=== PATIENT | male | born 1965 | race African-American/Black ===

== ENCOUNTER 2024-08-16 16:58 | Inpatient (IN) | payer BC ==
[~2024-08-16] VITALS: Ht 185.4 cm; Wt 95.0 kg
--- NOTE | 2024-08-16 17:15 | ED.PDOC ---
HPI Comments 58 y.o male with PMHx of DC, DM and HTN, presents to the ED for a chief complaint of left sided chest pressure associated with dizziness, SOB and a generalized sharp headache that presented earlier today around 12:30pm at [employer]. Patient reports when he stood up, symptoms presented and since have progressively worsened. Patient also reports BS of 361 today, usually ranges in the 250's s/p eating. Patient denies any nausea, vomiting, diarrhea, abdominal pain, fever, chills., Chief Complaint: Palpitations Time Seen by MD: 17:02 Reviewed Notes: Nurses Notes, Medications, Allergies Allergies: Coded Allergies: NO KNOWN ALLERGIES (Unverified , 08/16/24) Information Source: Patient, Friend, Spouse Mode of Arrival: Wheelchair Severity: Moderate Timing: Hours Duration: Since onset Location: Chest (L) Radiation: No Radiation Onset: At Rest Cardiac Risk Factors: HTN, Diabetes PE Risk Factors: None History of: DC Modifying Factors: Nothing Associated Signs and Symptoms: SOB Past Medical History PAST MEDICAL HISTORY: DM, HTN, DC Surgical History: PTCA Family History Family History: Reviewed,noncontributory to illness Social History Smoker: Non-Smoker Alcohol: Denies ETOH Use Drugs: Denies Drug Use Lives In: Home Constitutional: denies: chills, diaphoresis, fatigue, fever, malaise, sweats, weakness, others EENTM: denies: blurred vision, double vision, ear bleeding, ear discharge, ear drainage, ear pain, ear ringing, eye pain, eye redness, hearing loss, mouth pain, mouth swelling, nasal discharge, nose bleeding, nose congestion, nose kimo n, photophobia, tearing, throat pain, throat swelling, voice changes, others Respiratory: reports: SOB at rest, shortness of breath, SOB with excertion; denies: cough, hemoptysis, orthopnea, stridor, wheezing, others Cardiovascular: reports: chest pain, palpitations; denies: dizzy spells, diaphoresis, Dyspnea on exertion, edema, irregular heart beat, left arm pain, lightheadedness, PND, syncope, others Gastrointestinal: denies: abdomen distended, abdominal pain, blood streaked bowels, constipated, diarrhea, dysphagia, difficulty swallowing, hematemesis, melena, nausea, poor appetite, poor fluid intake, rectal bleeding, rectal pain, vomiting, others Genitourinary: denies: burning, dysuria, flank pain, frequency, hematuria, incontinence, penile discharge, penile sore, pain, testicle pain, testicle swelling, urgency, others Neurological: reports: dizziness, headache; denies: fainting, left sided numbness, left sided weakness, numbness, paresthesia, pre-existing deficit, right sided numbness, right sided weakness, seizure, speech problems, tingling, tremors, weakness, others Musculoskeletal: denies: back pain, gout, joint pain, joint swelling, muscle pain, muscle stiffness, neck pain, others Integumetry: denies: bruises, change in color, change in hair/nails, dryness, laceration, lesions, lumps, rash, wounds, others Allergic/Immunocompromised: denies: Difficulty Healing, Frequent Infections, Hives, Itching, others Hematologic/Lymphatic: denies: anemia, blood clots, easy bleeding, easy bruising, swollen glands, others Endocrine: denies: excessive hunger, excessive sweating, excessive thirst, excessive urination, flushing, intolerance to cold, intolerance to heat, unexplained weight gain, unexplained weight loss, others Psychiatric: denies: anxiety, bipolar disorder, depression, hopeless, panic disorder, schizophrenia, sleepless, suicidal, others All Other Systems: Reviewed and Negative Physical Exam General Appearance: Moderate Distress HEENT: Normal ENT Inspection, Pharynx Normal, TMs Normal Neck: Full Range of Motion, Non-Tender, Normal, Normal Inspection Respiratory: Chest Non-Tender, Lungs Clear, No Accessory Muscle Use, No Respiratory Distress, Normal Breath Sounds Cardiovascular: No Edema, No JVD, No Murmur, No Gallop, Normal Peripheral Pulse s, Regular Rate/Rhythm Breast Exam: Deferred Gastrointestinal: No Organomegaly, Non Tender, No Pulsatile Mass, Normal Bowel Sounds, Soft Genitalia: Deferred Pelvic: Deferred Rectal: Deferred Extremities: No calf tenderness, Normal capillary refill, No pedal edema Musculoskeletal : Apperance: Normal Neurologic: Alert, automatic vulcanizing lead operator II-XII nml as Tested, No Motor Deficits, Normal Affect, Normal Mood, No Sensory Deficits Cerebellar Function: Normal Reflexes: Normal Skin: Dry, Normal Color, Warm Lymphatic: No Adenopathy EKG EKG : Pulse Rate (adult): 146 Cardiac Rhythm: ST, Junctional Was a procedure done? Was a procedure done?: No CP Differential Dx Differential Diagnosis: Angina, Anxiety / Panic Attack, Electrolyte Disorder, Heart Failure, Pulmonary Embolus, Sinus Tachycardia Differential Diagnosis: Angina, Chest Wall Pain, Cholelithiasis, Costochondritis, Esophageal reflux/spasm, Gastritis, Myocardial Infarction, Pericarditis X-Ray, Labs, Meds, VS Vital Signs Date Time Temp Pulse Resp B/P (MAP) Pulse Ox O2 Delivery O2 Flow Rate FiO2 08/16/24 18:34 96 15 99 Room Air* 0 21 08/16/24 18:31 93 123/81 08/16/24 18:00 93 15 123/81 (95) 100 08/16/24 18:00 90 08/16/24 17:57 90 08/16/24 17:46 98.4 91 15 123/80 (94) 100 98.4 08/16/24 17:15 146 08/16/24 17:13 98.4 141 16 118/87 (97) 98 08/16/24 17:02 146 Lab Test 08/16/24 19:16 08/16/24 18:07 Range/Units Prothrombin Time Pending Prothrombin Time INR Pending Activated Partial Thromboplast Time Pending D-Dimer, Quantitative 0.42 0.0-0.49 mg/L FEU Troponin I High Sensitivity 202 *H 104 *H </=54 ng/L White Blood Count 13.2 H 4.4-10.8 10^3/uL Red Blood Count 4.55 4.5-5.90 10^6/uL Hemoglobin 14.6 13.5-17.5 g/dL Hematocrit 42.8 41.0-53.0 % Mean Corpuscular Volume 94.2 80.0-100.0 fL Mean Corpuscular Hemoglobin 32.1 H 28.0-32.0 pg Mean Corpuscular Hemoglobin Concent 34.0 32.0-36.0 g/dL Red Cell Distribution Width 14.6 H 11.8-14.3 % Platelet Count 156 140-450 10^3/uL Mean Platelet Volume 8.7 6.9-10.8 fL Neutrophils (%) (Auto) 68.8 37.0-80.0 % Lymphocytes (%) (Auto) 21.9 10.0-50.0 % Monocytes (%) (Auto) 7.6 0.0-12.0 % Eosinophils (%) (Auto) 1.1 0.0-7.0 % Basophils (%) (Auto) 0.6 0.0-2.0 % Neutrophils # (Auto) 9.1 H 1.6-8.6 10 ^3/uL Lymphocytes # (Auto) 2.9 0.4-5.4 10 ^3/uL Monocytes # (Auto) 1.0 0-1.3 10 ^3/uL Eosinophils # (Auto) 0.2 0-0.8 10 ^3/uL Basophils # (Auto) 0.1 0-0.2 10 ^3/uL Nucleated Red Blood Cells 0.0 % Sodium Level 139 136-145 mmol/L Potassium Level 4.1 3.5-5.1 mmol/L Chloride Level 107 98-107 mmol/L Carbon Dioxide Level 21 20-31 mmol/L Anion Gap 11 5-15 Blood Urea Nitrogen 12 9-23 mg/dL Creatinine 1.59 H 0.700-1.30 mg/dL Glomerular Filtration Rate Calc 50 >90 mL/min BUN/Creatinine Ratio 7.5 L 10.0-20.0 Serum Glucose 173 H 74-106 mg/dL Calcium Level 9.6 8.7-10.4 mg/dL Magnesium Level 1.7 1.6-2.6 mg/dL Total Bilirubin 0.4 0.2-1.0 mg/dL Aspartate Amino Transferase (AST) 23 13-40 U/L Alanine Aminotransferase (ALT) 20 7-40 U/L Alkaline Phosphatase 55 46-116 U/L Total Protein 6.3 5.7-8.2 g/dL Albumin 4.0 3.2-4.8 g/dL Current Medications Medications (Trade) Dose Ordered Sig/Samir Route Start Time Stop Time Status Last Admin Aspirin 162 mg ONCE ONCE PO 08/16/24 17:15 08/16/24 17:22 DC 08/16/24 18:32 CHEST RADIOGRAPH IMPRESSION: 1. No evidence of acute disease. The patient's CBC shows an elevated white blood cell count of 13.2 The rest of the CBC is within normal limits The patient was given aspirin 162 mg by mouth The patient's initial troponin was 104 The troponin continues to rise now at 202 for the 2nd one The patient was not currently having any chest pain We have discussed the findings with the patient We did call the microfilm operator (Dr. Mackey) The patient was receiving a heparin bolus and then being placed on a heparin drip The patient was being admitted at this time The patient will be given medication for chest pain if it persists. The repeat EKG shows now the rate at around 90 at normal sinus rhythm Images Reviewed?: Images reviewed and evaluated by me Time of 1ST Reevaluation: 17:12 Reevaluation 1ST: Unchanged Patient Education/Counseling: Diagnosis, Treatment, Prognosis Family Education/Counseling: No Family Present Departure 1 Departure Time of Disposition: 20:00 Impression: Primary Impression: Elevated troponin Additional Impression: Non-STEMI (non-ST elevated myocardial infarction) Disposition: ADMITTED INPATIENT Admit to: Tele Condition: Fair Critical Care Note Critical Care Time?: Yes (45 min-critical care time only) Stability Stability form required: Yes Unstable for transfer: Telemetry monitoring (Telemetry monitoring required), ED Physician Assesment (Clinical assesment) Heart Score Heart Score: Heart Score Response (Comments) Value History Moderate Suspicious 1 EKG Repolarization Disturb 1 Age 45-64 1 Risk Factors >3 or Hx ASHD 2 Troponin 1-2 x's Normal limit 1 Total 6 I personally scribed for NEGIN DELAROSA MD ([email or web address]) on 08/16/24 at 17:15. Electronically submitted by Marisol Eduardo ([employer]). I personally scribed for NEGIN DELAROSA MD ([email or web address] [email or web address] Skin) on 08/16/24 at 19:20. Electronically submitted by Marisol Eduardo ([employer]). NEGIN DELAROSA MD Aug 16, 2024 17:15
--- NOTE | 2024-08-16 17:37 | DVH ---
CHEST RADIOGRAPH Indication: cp Technique: Frontal and lateral view of the chest was obtained Comparison: None FINDINGS: Lines and Tubes: None Lungs: Clear Pleura: No effusion. No pneumothorax. Cardiomediastinal contours: Unremarkable Bones: Unremarkable IMPRESSION: 1. No evidence of acute disease.
--- NOTE | 2024-08-16 17:58 | ECG ---
[facility] Test Date: 2024-08-16 Test Time: 17:57:56 Pat Name: ROMEL MILLER Department: er Room: Gender: M Application Integration Specialist: geeta : 1965 Requested By: NEGIN DELAROSA Order Number: [id number] Reading MD: Measurements Intervals [place] Rate: 90 P: 21 FL: 187 QRS: 21 QRSD: 73 T: -33 QT: 312 QTc: 382 Interpretive Statements Sinus rhythm Nonspecific T abnormalities, diffuse leads Please click the below link to view image of tracing.
[2024-08-16 18:16] LABS: Basophils # (auto) 0.1 10 ^3/uL (0-0.2); Basophils % (auto) 0.6 % (0.0-2.0); Eosinophils # (auto) 0.2 10 ^3/uL (0-0.8); Eosinophils % (auto) 1.1 % (0.0-7.0); Hematocrit 42.8 % (41.0-53.0); Hemoglobin 14.6 g/dL (13.5-17.5); Lymphocytes # (auto) 2.9 10 ^3/uL (0.4-5.4); Lymphocytes % (auto) 21.9 % (10.0-50.0); Mean Corpuscular Hemoglobin 32.1 pg (28.0-32.0); Mean Corpuscular Volume 94.2 fL (80.0-100.0); Monocytes % (auto) 7.6 % (0.0-12.0); Neutrophils # (auto) 9.1 10 ^3/uL (1.6-8.6); Neutrophils % (auto) 68.8 % (37.0-80.0); Platelet Count (auto) 156 10^3/uL (140-450); Red Blood Cells 4.55 10^6/uL (4.5-5.90); Red Cell Distribution Width 14.6 % (11.8-14.3); White Blood Cell 13.2 10^3/uL (4.4-10.8)
[2024-08-16] MEDS: METOPROLOL TARTRATE 1MG/1ML-5ML VIAL IV ONE (18:31)
[2024-08-16] MEDS: ASPirin 81 mg TAB PO ONE (18:32)
[2024-08-16 18:34] VITALS: PULSE 96; RESP 15; O2SAT 99
[2024-08-16 18:48] LABS: Alanine Aminotransferase 20 U/L (7-40); Alkaline Phosphatase 55 U/L (46-116); Anion Gap 11 (5-15); Aspartate Aminotransferase 23 U/L (13-40); BUN/Creatinine Ratio 7.5 (10.0-20.0); Bilirubin, Total 0.4 mg/dL (0.2-1.0); Blood Urea Nitrogen 12 mg/dL (9-23); Calcium 9.6 mg/dL (8.7-10.4); Carbon Dioxide 21 mmol/L (20-31); Chloride 107 mmol/L (98-107); Glucose 173 mg/dL (74-106); Potassium 4.1 mmol/L (3.5-5.1); Sodium 139 mmol/L (136-145); Total Protein 6.3 g/dL (5.7-8.2)
[2024-08-16 19:30] VITALS: PULSE 92; RESP 15; O2SAT 99
[2024-08-16] MEDS ORDERED: HEPARIN SODIUM (PORCINE) 5000 UNITS/ML 1ML VIAL IV ONE (19:30)
[2024-08-16 20:05] LABS: Partial Thromboplastin Time 20.1 SEC (24.5-34.5); Prothrombin Time 10.6 sec (9.3-11.8)
[2024-08-16] MEDS ORDERED: DEXTROSE (50%) 50ML SYRG IV PRN (20:30)
[2024-08-16] MEDS ORDERED: ONDANSETRON HCL 4 MG/2 ML VIAL IV PRN (20:30)
[2024-08-16] MEDS ORDERED: NITROGLYCERIN 0.4 MG SL TAB SL PRN (20:30)
[2024-08-16] MEDS ORDERED: MORPHINE SULFATE INJ 2 MG/ml SYRG IV PRN (20:30)
[2024-08-16] MEDS: ACETAMINOPHEN 325 MG TAB PO ONE (21:10)
[2024-08-16] MEDS ORDERED: HEPARIN DRIP/D5W 100UNITS/ML 250 ML IV SCH (21:30)
[2024-08-16] MEDS: SODIUM CHLORIDE 0.9% 1,000 ML IV ONE (21:38)
[2024-08-16] MEDS: HEPARIN SODIUM (PORCINE) 5000 UNITS/ML 1ML VIAL IV ONE (22:14)
--- NOTE | 2024-08-16 22:15 | DVHHP2 ---
History of Present Illness Reason for Visit: Shortness of breath History of Present Illness 58-year-old male presents with complaints of shortness for breath. 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 He states the symptoms persisted with dizziness. He reports mild left-sided chest discomfort. One of the members at his [employer] checked his vital signs and his heart rate was sustaining in the 160s and blood pressure in the one teens. Currently he denies any other acute complaints at the moment. Past Medical History Hypertension, mi, diabetes mellitus Past Surgical History PTCA Family History Noncontributory Smoke: No ALCOHOL: none Drugs: None Lives: with Family Review of Systems Review of Systems Review of systems are currently negative otherwise addressed in HPI. Allergies: Coded Allergies: NO KNOWN ALLERGIES (Unverified , 08/16/24) Medications Current Medications Medications Dose Ordered Sig/Samir Route Start Time Stop Time Status Last Admin Dose Admin Heparin Sodium/ Dextrose 250 ml @ 10 mls/hr Q24H IV 08/16/24 21:30 Atorvastatin Calcium 10 mg HS PO 08/16/24 22:00 Diagnostic Test (Pha) 1 strip Q6HR 08/17/24 00:00 Insulin Human Regular Q6HR SC 08/17/24 00:00 Dextrose 50 ml UD PRN IV 08/16/24 20:30 Ondansetron HCl 4 mg Q4HP PRN IV 08/16/24 20:30 Nitroglycerin 0.4 mg Q5MINP PRN SL 08/16/24 20:30 Morphine Sulfate 2 mg Q30M PRN IV 08/16/24 20:30 Exam Vital Signs Vital Signs Date Time Temp Pulse Resp B/P (MAP) Pulse Ox O2 Delivery O2 Flow Rate FiO2 08/16/24 21:10 97.5 08/16/24 20:06 82 08/16/24 19:30 15 99 Room Air* 0 21 08/16/24 18:31 123/81 Exam Gen: 58-year-old male in no apparent distress Skin: Warm, dry, normal color and texture, no rash. HEENT: Normocephalic atraumatic, mucous membranes moist and pink. Neck: Cervical and supraclavicular nodes normal without enlargement, trachea is midline, thyroid gland is normal without masses. Pulmonary: Clear to auscultation and percussion bilaterally. Cardiac: Regular rate and rhythm. No murmur Abdomen: Soft, nontender, nondistended, bowel sounds present all 4 quadrants, no guarding, no rigidity, no organomegaly. Extremities: No cyanosis, clubbing, no edema Neuro: Cranial nerves II through XII grossly intact, normal affect and speech, no focal motor deficits. Labs/Xrays ORDERING PHYSICIAN: NEGIN DELAROSA MD PROCEDURE(s): CXR2 - CHEST TWO VIEWS ROUTINE REASON: cp ORDER NUMBER(s): [id number], ACCESSION NUMBER(s): [id number] CHEST RADIOGRAPH Indication: cp Technique: Frontal and lateral view of the chest was obtained Comparison: None FINDINGS: Lines and Tubes: None Lungs: Clear Pleura: No effusion. No pneumothorax. Cardiomediastinal contours: Unremarkable Bones: Unremarkable IMPRESSION: 1. No evidence of acute disease. Labs Test 08/16/24 19:16 08/16/24 18:07 Range/Units Prothrombin Time 10.6 9.3-11.8 sec Prothrombin Time INR 1.00 0.9-1.15 Activated Partial Thromboplast Time 20.1 L 24.5-34.5 SEC D-Dimer, Quantitative 0.42 0.0-0.49 mg/L FEU Troponin I High Sensitivity 202 *H </=54 ng/L White Blood Count 13.2 H 4.4-10.8 10^3/uL Red Blood Count 4.55 4.5-5.90 10^6/uL Hemoglobin 14.6 13.5-17.5 g/dL Hematocrit 42.8 41.0-53.0 % Mean Corpuscular Volume 94.2 80.0-100.0 fL Mean Corpuscular Hemoglobin 32.1 H 28.0-32.0 pg Mean Corpuscular Hemoglobin Concent 34.0 32.0-36.0 g/dL Red Cell Distribution Width 14.6 H 11.8-14.3 % Platelet Count 156 140-450 10^3/uL Mean Platelet Volume 8.7 6.9-10.8 fL Neutrophils (%) (Auto) 68.8 37.0-80.0 % Lymphocytes (%) (Auto) 21.9 10.0-50.0 % Monocytes (%) (Auto) 7.6 0.0-12.0 % Eosinophils (%) (Auto) 1.1 0.0-7.0 % Basophils (%) (Auto) 0.6 0.0-2.0 % Neutrophils # (Auto) 9.1 H 1.6-8.6 10 ^3/uL Lymphocytes # (Auto) 2.9 0.4-5.4 10 ^3/uL Monocytes # (Auto) 1.0 0-1.3 10 ^3/uL Eosinophils # (Auto) 0.2 0-0.8 10 ^3/uL Basophils # (Auto) 0.1 0-0.2 10 ^3/uL Nucleated Red Blood Cells 0.0 % Sodium Level 139 136-145 mmol/L Potassium Level 4.1 3.5-5.1 mmol/L Chloride Level 107 98-107 mmol/L Carbon Dioxide Level 21 20-31 mmol/L Anion Gap 11 5-15 Blood Urea Nitrogen 12 9-23 mg/dL Creatinine 1.59 H 0.700-1.30 mg/dL Glomerular Filtration Rate Calc 50 >90 mL/min BUN/Creatinine Ratio 7.5 L 10.0-20.0 Serum Glucose 173 H 74-106 mg/dL Calcium Level 9.6 8.7-10.4 mg/dL Magnesium Level 1.7 1.6-2.6 mg/dL Total Bilirubin 0.4 0.2-1.0 mg/dL Aspartate Amino Transferase (AST) 23 13-40 U/L Alanine Aminotransferase (ALT) 20 7-40 U/L Alkaline Phosphatase 55 46-116 U/L Total Protein 6.3 5.7-8.2 g/dL Albumin 4.0 3.2-4.8 g/dL Assessment/Plan Assessment/Plan Assessment NSTEMI Chronic kidney disease Hypertension Diabetes mellitus Plan Admit the patient to telemetry to the hospitalist Continue heparin drip started by ER provider NPO after midnight Cardiology consultation Continue treatment per orders. Plan discussed with: Patient My Orders Orders - TOMASZ GANDHI Procedure Category Date Status Time Atorvastatin (Lipitor) PHA 08/16/24 In Process 22:00 Sodium Chloride 0.9% PHA 08/16/24 In Process 20:30 Basic Metabolic Panel LAB 08/17/24 Verified 04:00 Glucose Blood PHA 08/17/24 In Process (Accu-Chek Comfort 00:00 Insulin R (Human) PHA 08/17/24 In Process (Insulin R) 00:00 Dextrose 50% Syringe PHA 08/16/24 In Process 20:30 Admit ADMIT 08/16/24 Transmitted 20:19 Ondansetron Hcl PHA 08/16/24 In Process (Zofran) 20:30 Npo (Nothing By DIET 08/17/24 Transmitted Mouth) Diet Breakfast Condition: Fair [facility] 08/16/24 In Process 20:19 Bedrest With Bathroom [facility] 08/16/24 In Process Privileg 20:19 Nitroglycerin [facility] 08/16/24 In Process Sublingual (Ntrostat 20:30 Morphine Sulfate [facility] 08/16/24 In Process Injection 20:30 Notify Of Changes [facility] 08/16/24 In Process From Base 20:19 Clip Riveter For [facility] 08/16/24 In Process 24 Hours 20:19 Emergency Dysrhythmia [facility] 08/16/24 In Process Protocol 20:19 Rhythm Strips Once [facility] 08/16/24 In Process Every Shift 20:19 Oxygen By Nasal RT 08/16/24 Transmitted Cannula 20:19 Troponin-I Hs LAB 08/16/24 Logged 22:03 Lipid Panel LAB 08/16/24 Logged 22:03 Date of Service: Aug 16, 2024 Billing Provider: TOMASZ GANDHI Common Visit Codes: [id number] INP/OBS CARE (HIGH) TOMASZ GANDHI Aug 16, 2024 22:15
[2024-08-16] MEDS: HEPARIN DRIP/D5W 100UNITS/ML 250 ML IV SCH (22:30)
[2024-08-16 22:31] LABS: LDL Cholesterol 73 mg/dL (< 100); Triglycerides 93 mg/dL (< 150)
[2024-08-16 22:33] LABS: Cholesterol 145 mg/dL (< 200); HDL Cholesterol 57 mg/dL (40-59)
[2024-08-16] MEDS: ATORVASTATIN 20 MG TAB PO SCH (23:51)
[2024-08-17] MEDS: ACCU-CHEK COMFORT CURVE STRIP VI SCH (00:33)
[2024-08-17] MEDS: InsuLIN REG 1unit/0.01ml Soln (100units/ml) SC SCH (00:38)
[2024-08-17 05:55] LABS: INR 1.03 (0.9-1.15); Partial Thromboplastin Time 46.2 SEC (24.5-34.5); Prothrombin Time 10.9 sec (9.3-11.8)
[2024-08-17 06:02] LABS: Potassium 3.7 mmol/L (3.5-5.1); Sodium 142 mmol/L (136-145)
[2024-08-17 06:03] LABS: Anion Gap 9 (5-15); Carbon Dioxide 23 mmol/L (20-31)
[2024-08-17 06:08] LABS: BUN/Creatinine Ratio 10.6 (10.0-20.0); Blood Urea Nitrogen 15 mg/dL (9-23); Glucose 98 mg/dL (74-106)
[2024-08-17 06:22] LABS: Calcium 8.5 mg/dL (8.7-10.4); Chloride 110 mmol/L (98-107)
[2024-08-17] MEDS: HEPARIN DRIP/D5W 100UNITS/ML 250 ML IV SCH (06:28)
--- NOTE | 2024-08-17 07:09 | ECG ---
[facility] Test Date: 2024-08-16 Test Time: 20:06:34 Pat Name: ROMEL MILLER Department: ER Room: [address] [place] [address] Gender: M Club Waiter/Waitress: : 1965 Requested By: NEGIN DELAROSA Order Number: [id number] Reading MD: Measurements Intervals [place] Rate: 82 P: 10 ME: 178 QRS: 23 QRSD: 78 T: -40 QT: 347 QTc: 406 Interpretive Statements Sinus rhythm Nonspecific T abnormalities, diffuse leads Please click the below link to view image of tracing.
[2024-08-17 08:06] VITALS: PULSE 97; RESP 18; O2SAT 97
--- NOTE | 2024-08-17 10:14 | DVHINCON2 ---
PINA ROBLES [facility] 08/17/24 1014: Date Seen: Aug 17, 2024 Referring Physician MD Jamila Reason for Consultation Chest pain History of Present Illness This is a 58-year-old male patient who presents to the emergency room with chief complaint of shortness of breath, dizziness, and chest pain. The patient reports that at approximately 1:00 p.m. 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 He also describes chest pain which he states was unprovoked, intermittent, pressure-like in nature, and left-sided and nonradiating. He came to the emergency room for further evaluation. Initial twelve lead electrocardiogram reveals atrial tachycardia with diffuse T-wave depression. Initial troponin level of 104ng/L with peak level at 299ng/L. Significant past medical history includes previous myocardial infarction in 2018, coronary artery disease status post PTCA X 1 KD in 2019, hypertension, dyslipidemia, type 2 diabetes mellitus, and GERD. 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 Past Medical History Past medical history reviewed. No other significant than mentioned above. Past Surgical History Denies all previous surgeries Family History Family history reviewed. Social History Denies the use of tobacco, alcohol or illicit drugs. Allergies: Coded Allergies: NO KNOWN ALLERGIES (Unverified , 08/16/24) Home Meds Reported Medications Insulin Glargine (Toujeo Solostar) 300 Unit/Ml Inj 08/17/24 Hydralazine Hcl (Hydralazine Hcl) 50 Mg Tab, 1 08/17/24 Amlodipine Besylate (Amlodipine Besylate) 5 Mg Tab, 1 DAILY 08/17/24 Losartan Potassium (Losartan Potassium) 100 Mg Tab, 1 DAILY 08/17/24 Metoprolol Succinate (Metoprolol Succinate Er) 25 Mg Tab 08/17/24 Home Meds Home medications reviewed. Current Medications Current Medications Medications (Trade) Dose Ordered Sig/Samir Route PRN Reason Start Time Stop Time Status Last Admin Heparin Sodium/ Dextrose 250 ml @ 10 mls/hr Q24H IV 08/16/24 21:30 08/16/24 22:20 DC Atorvastatin Calcium (Lipitor) 10 mg HS PO 08/16/24 22:00 Diagnostic Test (Pha) (Accu-Chek Comfort Curve T) 1 strip Q6HR 08/17/24 00:00 08/17/24 06:57 Insulin Human Regular (InsuLIN R) Q6HR SC 08/17/24 00:00 08/17/24 00:38 Dextrose 50 ml UD PRN IV Blood Sugar LESS THAN 60 08/16/24 20:30 Ondansetron HCl (Zofran) 4 mg Q4HP PRN IV NAUSEA / VOMITING 08/16/24 20:30 Nitroglycerin (Ntrostat Sublingual) 0.4 mg Q5MINP PRN SL FOR CHEST PAIN 08/16/24 20:30 Morphine Sulfate 2 mg Q30M PRN IV FOR CHEST PAIN 08/16/24 20:30 Heparin Sodium/ Dextrose 250 ml @ 10 mls/hr Q24H IV 08/16/24 22:30 08/17/24 06:23 DC 08/16/24 22:30 Heparin Sodium/ Dextrose 250 ml @ 12 mls/hr [id number] IV 08/17/24 06:30 08/17/24 06:28 Review of Systems Constitutional: No symptom reported Ears, Nose, & Throat: No symptom reported Eyes: No symptom reported Neurological: No symptoms reported Pulmonary/Respiratory: Shortness of breath Cardiovascular: Chest pain Gastrointestinal: No symptom reported Genitourinary: No symptom reported Musculoskeletal: No symptom reported Skin: No symptom reported Psychiatric: No symptom reported Endocrine: No symptom reported Hematologic/Lymphatic: No symptom reported Vital Signs Vital Signs Date Time Temp Pulse Resp B/P (MAP) Pulse Ox O2 Delivery O2 Flow Rate FiO2 08/17/24 08:06 97 18 97 Room Air* 0 21 08/17/24 08:05 98.0 135/95 (108) 98.0 Physical Exam General Appearance: Cooperative. Well-developed. Well-nourished. No acute distress. Pulmonary/Respiratory: Clear, bilateral breaths sounds. Cardiovascular/Chest: Regular rate and rhythm. Peripheral Pulses: 2+ Radial (R). 2+ Radial (L). 2+ Pedal (R). 2+ Pedal (L) Abdominal Exam: Normal bowel sounds. Ankle Exam: Negative ankle edema Lower extremities: Negative lower extremity edema Neuro/Mental Status: A/OX4, coherent. Thoughts/Psych: Normal thought pattern. Appropriate mood and affect. Good ju dgment and insight. Appearance: No acute distress. Skin Exam: Normal inspection. Normal color. Warm and dry. Labs/Diagnostic Data Labs Test 08/17/24 10:04 08/17/24 09:50 08/17/24 05:00 08/16/24 22:06 Range/Units POC Glucose 114 H 70-106 mg/dl Sodium Level 142 136-145 mmol/L Potassium Level 3.7 3.5-5.1 mmol/L Chloride Level 110 H 98-107 mmol/L Carbon Dioxide Level 23 20-31 mmol/L Anion Gap 9 5-15 Blood Urea Nitrogen 15 9-23 mg/dL Creatinine 1.41 H 0.700-1.30 mg/dL Glomerular Filtration Rate Calc 58 >90 mL/min BUN/Creatinine Ratio 10.6 10.0-20.0 Serum Glucose 98 74-106 mg/dL Calcium Level 8.5 L 8.7-10.4 mg/dL Triglycerides Level 93 < 150 mg/dL Cholesterol Level 145 < 200 mg/dL LDL Cholesterol 73 < 100 mg/dL HDL Cholesterol 57 40-59 mg/dL Test 08/16/24 19:16 08/16/24 18:07 Range/Units D-Dimer, Quantitative 0.42 0.0-0.49 mg/L FEU Eosinophils (%) (Auto) 1.1 0.0-7.0 % Eosinophils # (Auto) 0.2 0-0.8 10 ^3/uL Basophils # (Auto) 0.1 0-0.2 10 ^3/uL Nucleated Red Blood Cells 0.0 % Magnesium Level 1.7 1.6-2.6 mg/dL Total Bilirubin 0.4 0.2-1.0 mg/dL Aspartate Amino Transferase (AST) 23 13-40 U/L Alanine Aminotransferase (ALT) 20 7-40 U/L Alkaline Phosphatase 55 46-116 U/L Total Protein 6.3 5.7-8.2 g/dL Albumin 4.0 3.2-4.8 g/dL Assessment Chest pain, rule out coronary ischemia Coronary artery disease status post PTCA x1 KD Rule out structural heart disease History myocardial infarction in 2019 Hypertension Dyslipidemia Type 2 diabetes mellitus Acute kidney injury Plan/Recommendation We will continue with following plan/recommendations (Dr. Nguyen): * Echocardiogram to evaluate cardiac function * Chest pain protocol * KRIS score: 3 points * HEART score: 5 points * Single antiplatelet therapy and lipid-lowering agent * Close Cardiac surveillance * Nuclear scan Case discussed with . Given the patient's clinical presentation and elevated troponin level, we will proceed with a nuclear stress test. Plan discussed with the patient who is agreeable. We will schedule the patient at first availability. Thank you for allowing us to care for this patient. Please call with any questions or concerns. Critical care time spent: 44 minutes This medical document was created using an electronic medical record system with voice recognition software and computerized dictation system. Although this document has been carefully reviewed, there might still be some phonetic and typographical errors. Occasional wrong-word or ``sound-alike substitutions may have occurred due to the inherent limitations of voice recognition software. These areas are purely typographical due to imperfections of the software programs and do not reflect any compromise in the patient's medical care. Please read the chart carefully and recognize, using context, where these substitutions have occurred. Plan discussed with: Patient NYHA Physical activity limitations: NA Date of Service: Aug 17, 2024 Billing Provider: PINA ROBLES Cardiology Common Codes: 50521-LCGJWHR INP/OBS CARE (High) Cardiology Consultation Codes: 32900-[id number] CONSULT <45MIN ALTAGRACIA NGUYEN MD 08/17/24 1855: Allergies: Coded Allergies: NO KNOWN ALLERGIES (Unverified , 08/16/24) Home Meds Reported Medications Insulin Glargine (Toujeo Solostar) 300 Unit/Ml Inj 08/17/24 Hydralazine Hcl (Hydralazine Hcl) 50 Mg Tab, 1 08/17/24 Amlodipine Besylate (Amlodipine Besylate) 5 Mg Tab, 1 DAILY 08/17/24 Losartan Potassium (Losartan Potassium) 100 Mg Tab, 1 DAILY 08/17/24 Metoprolol Succinate (Metoprolol Succinate Er) 25 Mg Tab 08/17/24 Plan/Recommendation ecg showed atrial tach possible long RP tach, SVT start BB r/o ischemia, spect, no major ischemia noted Plan discussed with: Patient PINA ROBLES Aug 17, 2024 10:14 ALTAGRACIA NGUYEN MD Aug 17, 2024 18:55
[2024-08-17 10:17] LABS: Basophils # (auto) 0.1 10 ^3/uL (0-0.2); Basophils % (auto) 0.7 % (0.0-2.0); Eosinophils # (auto) 0.2 10 ^3/uL (0-0.8); Eosinophils % (auto) 2.1 % (0.0-7.0); Hematocrit 40.8 % (41.0-53.0); Lymphocytes # (auto) 3.5 10 ^3/uL (0.4-5.4); Lymphocytes % (auto) 34.9 % (10.0-50.0); Mean Corpuscular Hemoglobin 32.5 pg (28.0-32.0); Mean Corpuscular Hgb Conc. 34.2 g/dL (32.0-36.0); Mean Corpuscular Volume 94.8 fL (80.0-100.0); Monocytes # (auto) 0.7 10 ^3/uL (0-1.3); Monocytes % (auto) 7.4 % (0.0-12.0); Neutrophils # (auto) 5.6 10 ^3/uL (1.6-8.6); Neutrophils % (auto) 54.9 % (37.0-80.0); Nucleated Red Blood Cells % 0.1 %; Platelet Count (auto) 270 10^3/uL (140-450); Red Blood Cells 4.31 10^6/uL (4.5-5.90); Red Cell Distribution Width 15.1 % (11.8-14.3); White Blood Cell 10.2 10^3/uL (4.4-10.8)
[2024-08-17 11:25] LABS: INR 1.08 (0.9-1.15); Partial Thromboplastin Time 66.4 SEC (24.5-34.5); Prothrombin Time 11.4 sec (9.3-11.8)
--- NOTE | 2024-08-17 12:38 | DVHSR ---
APPROVED REPORT EXAM: Two-dimensional and M-mode echocardiogram with Doppler and color Doppler. Blood Pressure: 135/95 mmHg INDICATION Evaluate cardiac function BRIEF HISTORY CAD RISK FACTORS Height: 6'1", Weight: 209 DIMENSIONS LVDd4.1 (3.8-5.7cm)LA (2D)3.5 (1.9-4.0cm)Aortic Root3.3 (2.0-3.7cm) LVDs3.5 (2.5-4.0cm)LA (MM) (1.9-4.0cm)Aortic Cusp Exc1.7 (1.5-2.0cm) EF (%) 40.0 (55-70%)Rt. Atrium3.6 (1.9-4.0cm)Asc. Aorta cm IVSd1.1 (0.7-1.1cm)RV (D)4.3 (1.8-2.4cm) PWd1.0 (0.7-1.1cm) Mitral Valve MitralMitral Stenosis E wave0.69m/sMV Mean GR.mmHg A wave0.92m/sMV Peak GR.mmHg E/A ratio0.82D MVAcm2 DECEL [id number] 1/2 [place] Aortic Valve Aortic ValveAortic Stenosis V10.93m/[place] Mean GR.4mmHg V21.32m/[place] Peak GR.7mmHg LVOT Diameter1.9 (1.8-2.4cm)Doppler AVA2.00cm2 Pulmonic Valve V20.93m/s Conclusion lvef 55% by visual estimate borderline LVH grade 1 diastolic dysfunction normal rv function bordelrine left atrium enlarged no severe valve abnormaliteis noted
[2024-08-17 12:57] LABS: Amphetamine Screen, Urine Neg (NEGATIVE); Barbiturate Scree,Urine Neg (NEGATIVE); Opiate Scree,Urine Neg (NEGATIVE); Phencyclidine Screen, Urine Neg (NEGATIVE)
[2024-08-17 12:58] LABS: Benzodiazephine Screen, Urine Neg (NEGATIVE); Cannabinoid Screen, Urine Neg (NEGATIVE); Cocaine Screen, Urine Neg (NEGATIVE)
[2024-08-17] MEDS: METOPROLOL SUCCINATE XL 50 MG TAB PO ONE ×2 (14:23→17:17)
[2024-08-17] MEDS: REGADENOSON 0.4 MG/5 ML SYRG IV ONE ×2 (14:26→14:27)
--- NOTE | 2024-08-17 14:49 | DVHSR ---
APPROVED REPORT Exam: Nuclear Stress Test BMI: 0 Stress Test Details HR Max Heart Rate (APMHR): 163.396711 bpm Target HR (85% APMHR): 138.202862 bpm BP ECG Stress ECG Conclusion lvef 50% minor anterior wall defect noted no severe stress induced ischemia noted stress ecg shows sinus tachycardia NM EXAM: Myocardial Perfusion REST/STRESS Imaging Protocol: Rest Tc-99m/Stress Tc-99m 1 day Resting Data Rest SPECT myocardial perfusion imaging was performed in supine position 60 minutes following the int ravenous injection of 11.3 mCi of Tc-99m Sestamibi. Time of rest injection: 1154 Time of rest imagin Administration Route: IV Administration Site: Left Hand Pharmacologic Stress Pharmacologic stress test was performed by injecting Regadenoson 0.4 mg IV push followed by the intra venous injection of 30.3 mCi of Tc-99m Sestamibi. Time of stress injection: 1330 Time of stress imagin Administration Route: IV Administration Site: Left Hand Gated Stress SPECT was performed 60 minutes after stress injection. The images were gated to evaluate regional wall motion and calculate left ventricular ejection fracti on. Stress only was performed in the Supine position. Nuclear Conclusion Nuclear Findings: negative for ischemia lvef 50% minor anterior wall defect noted no severe stress induced ischemia noted stress ecg shows sinus tachycardia
--- NOTE | 2024-08-17 15:30 | ECG ---
[facility] Test Date: 2024-08-16 Test Time: 17:02:40 Pat Name: ROMEL MILLER Department: ER Room: [address] [place] [address] Gender: M [employer] Supervisor: PHYLLIS : 1965 Requested By: NEGIN DELAROSA Order Number: [id number] Reading MD: Measurements Intervals [place] Rate: 146 P: 0 [place]: 0 QRS: 43 QRSD: 93 T: -42 QT: 284 QTc: 443 Interpretive Statements Junctional tachycardia Abnormal T, consider ischemia, diffuse leads Borderline ST elevation, anterolateral leads Please click the below link to view image of tracing.
--- NOTE | 2024-08-17 16:02 | DVHPN2 ---
Subjective Patient denies any symptoms at this time. Reviewed: Care Plan, H&P, Labs, Medications Changes from previous H/P or p: No Changes General: Per HPI Objective Vitals Vital Signs Date Time Temp Pulse Resp B/P (MAP) Pulse Ox O2 Delivery O2 Flow Rate FiO2 08/17/24 14:30 85 14 154/94 (114) 99 08/17/24 08:06 Room Air* 0 21 08/17/24 08:05 98.0 98.0 Intake/Output Intake and Output 08/17/24 07:00 Intake Total 791 ml Balance 791 ml Intake IV Total 791 ml General Appearance: Alert, Oriented X3, Cooperative, No acute distress HEENT: Atraumatic, PERRLA Lungs: Clear to auscultation, Normal air movement Cardiovascular: Normal S1, Normal S2 Abdomen: Normal bowel sounds, Soft Musculoskeletal: Normal sensory function, Normal motor function Neuro: Normal gait, Normal speech Psych/Mental Status: Mental status NL, Mood NL Medications Current Medications Medications Dose Ordered Sig/Samir Route Start Time Stop Time Status Last Admin Dose Admin Atorvastatin Calcium 10 mg HS PO 08/16/24 22:00 Diagnostic Test (Pha) 1 strip Q6HR 08/17/24 00:00 08/17/24 12:08 1 STRIP Insulin Human Regular Q6HR SC 08/17/24 00:00 08/17/24 00:38 4 UNITS Dextrose 50 ml UD PRN IV 08/16/24 20:30 Ondansetron HCl 4 mg Q4HP PRN IV 08/16/24 20:30 Nitroglycerin 0.4 mg Q5MINP PRN SL 08/16/24 20:30 Morphine Sulfate 2 mg Q30M PRN IV 08/16/24 20:30 Heparin Sodium/ Dextrose 250 ml @ 12 mls/hr [id number] IV 08/17/24 06:30 08/17/24 06:28 12 MLS/HR Aspirin 81 mg DAILY PO 08/18/24 10:00 Metoprolol Succinate 25 mg DAILY PO 08/18/24 10:00 Laboratory Results Laboratory Tests 08/17/24 05:00 08/17/24 10:04 Chemistry Test 08/16/24 18:07 08/17/24 05:00 Albumin 4.0 g/dL (3.2-4.8) Calcium Level 9.6 mg/dL (8.7-10.4) 8.5 mg/dL (8.7-10.4) L Magnesium Level 1.7 mg/dL (1.6-2.6) Total Protein 6.3 g/dL (5.7-8.2) Coagulation Test 08/16/24 19:16 08/17/24 05:00 08/17/24 10:04 Prothrombin Time 10.6 sec (9.3-11.8) 10.9 sec (9.3-11.8) 11.4 sec (9.3-11.8) Prothrombin Time INR 1.00 (0.9-1.15) 1.03 (0.9-1.15) 1.08 (0.9-1.15) Activated Partial Thromboplast Time 20.1 SEC (24.5-34.5) L 46.2 SEC (24.5-34.5) H 66.4 SEC (24.5-34.5) H D-Dimer, Quantitative 0.42 mg/L FEU (0.0-0.49) Lipid panel Test 08/16/24 22:06 Cholesterol Level 145 mg/dL (< 200) HDL Cholesterol 57 mg/dL (40-59) Triglycerides Level 93 mg/dL (< 150) LFT Test 08/16/24 18:07 Alanine Aminotransferase (ALT) 20 U/L (7-40) Alkaline Phosphatase 55 U/L (46-116) Aspartate Amino Transferase (AST) 23 U/L (13-40) Total Bilirubin 0.4 mg/dL (0.2-1.0) HgA1c, TSH Test 08/17/24 09:12 08/17/24 10:04 Thyroid Stimulating Hormone (TSH) 1.28 uIU/mL (0.55-4.78) Hemoglobin A1c 9.4 % A1C (<5.7) H Labs and/or images reviewed: Labs reviewed by me, Image(s) reviewed by me Assessment/Plan Assessment/Plan Impression: -NSTEMI, probable type 1 -history of CAD with previous stent placement -accelerated hypertension -CKD stage IIIB Plan: -continue aspirin and heparin drip -add Toprol-XL 25 mg p.o. daily, one dose now given patient being hypertensive -cardiology consultation: Stress test performed with pending results -EKG reviewed. Patient was in junctional tachycardia one arriving to the hospital. Now with ST depression in inferior wall -discussed case with Cardiology, possible angiogram tomorrow. Start diet and NPO after midnight -hold ARTURO inhibitor given renal function, normal EF This medical document was created using an electronic medical record system with [employer] dictation system. Although this document has been carefully reviewed, there may still be some phonetic and typographical errors. These areas are purely typographical due to imperfections of the software programs, and do not reflect any compromise in the patient's medical care. Total time spent with patient discussing and formulating plan of care: 35 minutes. Plan discussed with: Patient, Other (RN) Date of Service: Aug 17, 2024 Billing Provider: KYMBERLY BERMAN NP Common Visit Codes: [id number] INP/OBS CARE(HIGH) KYMBERLY BERMAN NP Aug 17, 2024 16:02
[2024-08-17 16:16] VITALS: BP 167/98; PULSE 77; PULSE 82; RESP 16; TEMP 97.6; O2SAT 98
[2024-08-17 16:34] LABS: INR 1.07 (0.9-1.15); Prothrombin Time 11.3 sec (9.3-11.8)
[2024-08-17 16:35] LABS: Partial Thromboplastin Time 84.3 SEC (24.5-34.5)
[2024-08-17] MEDS ORDERED: INSU1.2I (16:38)
[2024-08-17] MEDS ORDERED: AMLO1TAB22 (16:38)
[2024-08-17] MEDS ORDERED: METO25TA93 (16:38)
[2024-08-17] MEDS ORDERED: LOSA-535 (16:38)
[2024-08-17] MEDS ORDERED: HYDR50TA47 (16:38)
[2024-08-17] MEDS ORDERED: HEPARIN DRIP/D5W 100UNITS/ML 250 ML IV SCH ×2 (16:45)
[2024-08-17] MEDS: LABETALOL HCL 20 MG/4 ML VL IV PRN (17:22)
[2024-08-17 18:26] VITALS: BP 152/91; PULSE 81; RESP 16; TEMP 97.8; O2SAT 95
[2024-08-18] MEDS ORDERED: METO25TA36 PO (08:12)
--- NOTE | 2024-08-18 08:19 | DVHDS2 ---
Discharge Summary Date of Admission Aug 16, 2024 at 20:19 Date of Discharge: Aug 17, 2024 Admitting Diagnosis NSTEMI Labs/Diagnostic Data: Laboratory Results Test 08/17/24 15:58 08/17/24 14:31 08/17/24 12:08 08/17/24 11:23 Prothrombin Time 11.3 sec (9.3-11.8) Prothrombin Time INR 1.07 (0.9-1.15) Activated Partial Thromboplast Time 84.3 SEC (24.5-34.5) Troponin I High Sensitivity 87 ng/L (</=54) POC Glucose 105 mg/dl (70-106) Urine Opiates Screen Neg (NEGATIVE) Urine Fentanyl Screen Neg (NEGATIVE) Urine Barbiturates Screen Neg (NEGATIVE) Urine Phencyclidine Screen Neg (NEGATIVE) Urine Amphetamines Screen Neg (NEGATIVE) Urine Benzodiazepines Screen Neg (NEGATIVE) Urine Cocaine Screen Neg (NEGATIVE) Urine Cannabinoids Screen Neg (NEGATIVE) Test 08/17/24 10:04 08/17/24 09:12 08/17/24 05:00 08/16/24 22:06 White Blood Count 10.2 10^3/uL (4.4-10.8) Red Blood Count 4.31 10^6/uL (4.5-5.90) Hemoglobin 14.0 g/dL (13.5-17.5) Hematocrit 40.8 % (41.0-53.0) Mean Corpuscular Volume 94.8 fL (80.0-100.0) Mean Corpuscular Hemoglobin 32.5 pg (28.0-32.0) Mean Corpuscular Hemoglobin Concent 34.2 g/dL (32.0-36.0) Red Cell Distribution Width 15.1 % (11.8-14.3) Platelet Count 270 10^3/uL (140-450) Mean Platelet Volume 8.4 fL (6.9-10.8) Neutrophils (%) (Auto) 54.9 % (37.0-80.0) Lymphocytes (%) (Auto) 34.9 % (10.0-50.0) Monocytes (%) (Auto) 7.4 % (0.0-12.0) Eosinophils (%) (Auto) 2.1 % (0.0-7.0) Basophils (%) (Auto) 0.7 % (0.0-2.0) Neutrophils # (Auto) 5.6 10 ^3/uL (1.6-8.6) Lymphocytes # (Auto) 3.5 10 ^3/uL (0.4-5.4) Monocytes # (Auto) 0.7 10 ^3/uL (0-1.3) Eosinophils # (Auto) 0.2 10 ^3/uL (0-0.8) Basophils # (Auto) 0.1 10 ^3/uL (0-0.2) Nucleated Red Blood Cells 0.1 % Hemoglobin A1c 9.4 % A1C (<5.7) Thyroid Stimulating Hormone (TSH) 1.28 uIU/mL (0.55-4.78) Sodium Level 142 mmol/L (136-145) Potassium Level 3.7 mmol/L (3.5-5.1) Chloride Level 110 mmol/L (98-107) Carbon Dioxide Level 23 mmol/L (20-31) Anion Gap 9 (5-15) Blood Urea Nitrogen 15 mg/dL (9-23) Creatinine 1.41 mg/dL (0.700-1.30) Glomerular Filtration Rate Calc 58 mL/min (>90) BUN/Creatinine Ratio 10.6 (10.0-20.0) Serum Glucose 98 mg/dL (74-106) Calcium Level 8.5 mg/dL (8.7-10.4) Triglycerides Level 93 mg/dL (< 150) Cholesterol Level 145 mg/dL (< 200) LDL Cholesterol 73 mg/dL (< 100) HDL Cholesterol 57 mg/dL (40-59) Test 08/16/24 19:16 08/16/24 18:07 D-Dimer, Quantitative 0.42 mg/L FEU (0.0-0.49) Magnesium Level 1.7 mg/dL (1.6-2.6) Total Bilirubin 0.4 mg/dL (0.2-1.0) Aspartate Amino Transferase (AST) 23 U/L (13-40) Alanine Aminotransferase (ALT) 20 U/L (7-40) Alkaline Phosphatase 55 U/L (46-116) Total Protein 6.3 g/dL (5.7-8.2) Albumin 4.0 g/dL (3.2-4.8) Other Laboratory Tests 08/17/24 10:04 08/17/24 05:00 Brief Hx & Hospital Course: History of Present Illness 58-year-old male presents with complaints of shortness for breath. 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 He states the symptoms persisted with dizziness. He reports mild left-sided chest discomfort. One of the members at his [employer] checked his vital signs and his heart rate was sustaining in the 160s and blood pressure in the one teens. Currently he denies any other acute complaints at the moment. Course of hospitalization: While in the emergency room the patient had 12 lead ECG upon arrival finding the patient to be in junctional tachycardia with a heart rate in the 140s. Patient was troponins were elevated and then downtrended. Echocardiogram was performed. Cardiology consultation was obtained, for which the patient underwent cardiac nuclear stress test. Results were negative for any ischemic changes. Patient has been cleared for discharge. He has been in sinus rhythm since being converted with beta-blockers. Patient no longer has any symptoms. Findings were discussed with the patient, with the patient being agreeable to continue current treatment for hypertension including Toprol-XL 25 mg p.o. daily. He was instructed to follow up with his PCP in 1-2 weeks. All questions answered. Physical examination General: Alert and Oriented x3. No acute distress. Well-nourished. Eyes: EOMI. Anicteric. HENT: Moist mucous membranes. Lungs: Clear to auscultation bilaterally. No accessory muscle use. Cardiovascular: Regular rate and rhythm. No murmur. No JVD. Abdomen: Soft, non-tender and non-distended. No palpable masses. Extremities: No edema. Non-tender. Skin: No rashes or lesions. Warm. Neurologic: No focal neurological deficits. CN II-XII grossly intact, but not individually tested. Psychiatric: Cooperative. Appropriate mood and affect. Total time spent with patient discussing and formulating plan of care: 35 minutes. This medical document was created using an electronic medical record system with [employer] 911ation system. Although this document has been carefully reviewed, there may still be some phonetic and typographical errors. These areas are purely typographical due to imperfections of the software programs, and do not reflect any compromise in the patient's medical care. Consults/Reason for consult Cardiology: Rule out NSTEMI type 1 Condition at Discharge: Fair Final Diagnosis/Problems List NSTEMI II secondary to demand ischemia from tachycardia Secondary diagnosis Accelerated hypertension History of CAD with stent placement Discharge Disposition: Home Discharge Instruct/Medications Diet: Cardiac 2g Na,low cholest Activity: No Restrictions, As Tolerated Follow Up/Referral: PCP in 1-2 weeks Medications: Toprol xl 25mg po daily 36 Discharge Statement: "Patient was advised to return to the ER or call 911 if any headaches, dizziness, shortness of breath, chest pain, abdominal pain, bleeding, fevers, or worsening of medical condition. Patient was counseled about treatment plan, medications, possible side effects, patientverbalized understanding. All questions were answered to the best of my ability. This discharge took greater then 30 minutes in planning, reviewing documentation, counseling the patient, and discussing with other team members." ASSESSMENT ASSESSMENT Assessment NSTEMI II secondary to demand ischemia from tachycardia Date of Service: Aug 18, 2024 Billing Provider: KYMBERLY BERMAN NP Common Visit Codes: 29053-EQT/OBS DISCH DAY >30min KYMBERLY BERMAN NP Aug 18, 2024 08:19
[2024-08-18] MEDS ORDERED: METOPROLOL SUCCINATE XL 50 MG TAB PO SCH (10:00)
[2024-08-18] MEDS ORDERED: ASPirin 81 mg TAB PO SCH (10:00)
== END 2024-08-17 18:42 | disposition home or self-care (01) | DRG 281 ==
LOC: ER 16:58 → TELE 20:19 → TELE-EAST 08-17 16:16
PROVIDERS: ADMIT Nurse Practitioner; ATTEND Nurse Practitioner Acute Care
DX: I47.19 Other supraventricular tachycardia (principal); N17.9 Acute kidney failure, unspecified; I21.A1 Myocardial infarction type 2; E78.5 Hyperlipidemia, unspecified; N18.32 Chronic kidney disease, stage 3b; E11.22 Type 2 diabetes mellitus with diabetic chronic kidney disease; I12.9 Hypertensive chronic kidney disease with stage 1 through stage 4 chronic kidney disease, or unspecified chronic kidney disease; K21.9 Gastro-esophageal reflux disease without esophagitis; I25.10 Atherosclerotic heart disease of native coronary artery without angina pectoris; Z79.899 Other long term (current) drug therapy; Z95.5 Presence of coronary angioplasty implant and graft; Z79.4 Long term (current) use of insulin
CPT/HCPCS: 36415; 71046; 78452; 80048; 80053; 80061; 80307; 82962; 83036; 83735; 84443; 84484; 85025; 85379; 85610; 85730; 93005; 93017; 93306; 99291; G0378; J1815